=== PATIENT | male | born 1965 | race African-American/Black ===

== ENCOUNTER 2025-02-03 12:02 | Emergency (ER) | payer SELFPAY ==
[2025-02-03 12:05] VITALS: BP 150/101; PULSE 96; RESP 16; TEMP 36.4; O2SAT 100
[2025-02-03] MEDS: ACETAMINOPHEN 500 MG TABLET 1000 MG PO (12:30)
[2025-02-03] MEDS: TETANUS,DIPHTHERIA,AC PERTUSSIS ADULT (0.5 ML) BOOSTRIX IM (12:31)
--- OUTSIDE RECORDS SUMMARY | 2025-02-03 12:43 | XMS_ITS | Clinical Summary ---
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 Gender Identity Not on file Sexual Orientation Not on file Plan of Treatment Health Maintenance Due Date Last Done Comments Colorectal Cancer Screening Colonoscopy (10 Years) 1964 Annual Physical 02/11/1967 Hepatitis C 02/11/1982 DTaP, Tdap and Td Vaccines ( 1 - Tdap) 02/11/1983 Pneumococcal Vaccine: 50+ Ye ars (1 of 1 - PCV) 02/11/2014 Zoster Vaccines (1 of 2) 02/11/2014 COVID-19 Vaccine ( - 2023-2 5 season) 2024 RSV Immunization or 60+ Years (1 - 1-dose 75+ series) 02/11/2039 Meningococcal B Vaccine Aged Out No l onger eligible based on patient's age to complete this topic Meningococcal Vaccine Aged Out No tray marogth eligible based on patient's age to complete this topic RSV Immunizations Under 20 Months Aged Out No longer eligible based on patient's age to complete this topic
--- NOTE | 2025-02-03 14:57 | ED.HEATRA ---
HPI - Head Injury General Chief complaint: Head Injury Stated complaint: Head Injury Time Seen by Provider: 02/03/25 12:08 History of Present Illness HPI Narrative: Patient was at work when a drill fell on his head; no loss of consciousness, no nausea vomiting, no injuries or pain anywhere else, noticed some bleeding on his scalp. Related Data Allergies Allergy/AdvReac Type Severity Reaction Status Date / Time No Known Allergies Allergy Verified 02/03/25 12:07 Review of Systems Review of Systems: All systems reviewed & are unremarkable except as noted in HPI and below Exam Narrative: EXAMINATION OF ORGAN SYSTEMS/BODY AREAS: Constitutional: Vital signs per nursing GENERAL:[No acute distress, non-toxic appearing.] HEAD: Scalp lac EYES: EOMI, conjunctiva normal ENT: Hearing grossly intact LUNGS: Nonlabored breathing. HEART: [Regular rate and rhythm] ABD: [Soft], [nontender to palpation] EXT: Normal range of motion SKIN: 3.5 linear lac top of scalp NEURO: [Alert and oriented x 3. No gross focal sensory or strength deficits.] PSYCH: Normal affect Course Vital Signs Vital signs: Vital Signs Temperature 97.6 F 02/03/25 12:05 Pulse Rate 96 02/03/25 12:05 Respiratory Rate 16 02/03/25 12:05 Blood Pressure 150/101 H 02/03/25 12:05 Pulse Oximetry 100 02/03/25 12:05 Temperature 97.6 F 02/03/25 12:05 Pulse Rate 96 02/03/25 12:05 Respiratory Rate 16 02/03/25 12:05 Blood Pressure 150/101 H 02/03/25 12:05 Pulse Oximetry 100 02/03/25 12:05 Procedures Laceration Laceration 1: Date: 02/03/25 Time: 14:57 Site: scalp Side (If applicable): right Size (cm): 3.5 Description: linear Depth: simple, single layer Local Anesthetic: lidocaine 1% Amount of anesthesia used (mL): 3 Pre-repair: wound explored, irrigated and deep structures intact ====== Skin Level ====== Skin layer closed with: hema Number of sutures: 4 ====== Subcutaneous Layer ====== ====== Muscle Layer ====== ====== Tendon Layer ====== MDM - Head Injury MDM Narrative Medical decision making narrative: Patient presents after being hit on the head with a drill, there is a scalp laceration, no indication for CT per [place] rules and discussed with the patient and shared decision-making we will not obtain CT. Wound is clean and closed here, patient tolerated this well, return precautions provided. Discharge Plan Discharge Clinical Impression: Closed head injury, Laceration of scalp Patient Disposition: Home Condition: Stable Instructions: Head Injury (ED), Staple Care (ED) Additional Instructions: You have 4 hema placed on your scalp; please have them removed in 7-10 days. You can always return to the emergency room for any further issues. 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
== END 2025-02-03 12:44 | disposition home or self-care (01) ==
LOC: ANHED 12:39
PROVIDERS: Emergency Provider Emergency Medicine
DX: S01.01XA Laceration without foreign body of scalp, initial encounter (principal); Z23 Encounter for immunization; W20.8XXA Other cause of strike by thrown, projected or falling object, initial encounter
CPT/HCPCS: 12002; 90471; 90715; 99283; A9270